=== PATIENT | female | born 1950 | race Caucasian/White ===

== ENCOUNTER 2021-10-18 18:46 | Outpatient (CLI) | payer MEDICARE, BC, SELFPAY ==
[2021-10-18 21:41] LABS: Lipase* 86 U/L (23-300)
[2021-10-18 21:42] LABS: Alanine Aminotransferase* 24 U/L (4-35); Alkaline Phosphatase* 78 U/L (40-150); Aspartate Amino Transferase* 25 U/L (12-35); Bilirubin Direct* 0.1 mg/dL (0.0-0.5); Bilirubin Total* 0.3 mg/dL (0.1-1.5); Total Protein* 7.4 g/dL (6.0-8.3)
== END 2021-10-18 18:47 | disposition home or self-care (01) ==
PROVIDERS: PCP Family Medicine; Visit Provider Registered Nurse
DX: R10.9 Unspecified abdominal pain (principal); K25.9 Gastric ulcer, unspecified as acute or chronic, without hemorrhage or perforation
CPT/HCPCS: 80053; 80076; 83690

== ENCOUNTER 2021-11-13 09:49 | Outpatient (CLI) | payer MEDICARE, BC, SELFPAY | END 2021-11-13 09:50 | disposition home or self-care (01) | PROVIDERS: PCP Family Medicine; Visit Provider Surgery | DX: R19.8 Other specified symptoms and signs involving the digestive system and abdomen (principal) | CPT/HCPCS: 43239; 88305; J2250; J3010 ==

== ENCOUNTER 2021-11-21 14:33 | Outpatient (CLI) | payer MEDICARE, BC, SELFPAY ==
[2021-11-21 13:32] LABS: Albumin* 4.8 g/dL (3.3-5.0); Chloride* 103 mmol/L (96-114)
[2021-11-21 13:33] LABS: Potassium* 4.4 mmol/L (3.6-5.1); Sodium* 140 mmol/L (135-149)
[2021-11-21 13:35] LABS: Alanine Aminotransferase* 24 U/L (4-35); Alkaline Phosphatase* 73 U/L (40-150); Bilirubin Total* 0.5 mg/dL (0.1-1.5); Blood Urea Nitrogen* 17 mg/dL (7-30); Carbon Dioxide* 28 mmol/L (20-32); Cholesterol* 185 mg/dL (90-199); Creatinine* 0.8 mg/dL (0.5-1.5); Estimated Glomerular Filt Rate 78 ml/min; Glucose* 117 mg/dL (60-115); Total Protein* 7.2 g/dL (6.0-8.3)
[2021-11-21 13:36] LABS: Calcium* 9.9 mg/dL (8.4-10.6); HDL Cholesterol* 66 mg/dL (>=50); LDL Cholesterol Calculated 92 mg/dL (<100); Triglycerides* 137 mg/dL (40-149)
[2021-11-21 13:40] LABS: Aspartate Amino Transferase* 24 U/L (12-35)
== END 2021-11-21 14:34 | disposition home or self-care (01) ==
PROVIDERS: PCP Family Medicine; Visit Provider Family Medicine
DX: E78.5 Hyperlipidemia, unspecified (principal)
CPT/HCPCS: 80053; 80061

== ENCOUNTER 2021-12-12 10:31 | Outpatient (CLI) | payer MEDICARE, BC, SELFPAY ==
--- NOTE | 2021-12-12 11:00 | CRLHL7_ITS ---
For Patients: As a result of the Cures Act, medical imaging exams and procedure reports are released immediately into your electronic medical record. You may view this report before your referring provider. If you have questions, please contact your health care provider. Examination: US abdominal aorta Indication: Abdominal aortic aneurysm screening. Technique: Pink scale and color Doppler images of the aorta and common iliac arteries are obtained. Comparison: None Findings: Proximal aorta: 1.6 x 1.6 cm Mid aorta: 1.9 x 1.5 cm Distal aorta: 1.4 x 1.3 cm Right common iliac artery: 0.9 x 1.1 cm Left common iliac artery: 0.7 x 1.0 cm Impression: No abdominal aortic aneurysm. Dictated by Tommy Chaney MD @ 12/12/2021 11:09:18 AM (Electronically Signed)
== END 2021-12-12 10:32 | disposition home or self-care (01) ==
LOC: US 10:32
PROVIDERS: PCP Family Medicine; Visit Provider Family Medicine
DX: Z13.6 Encounter for screening for cardiovascular disorders (principal); Z87.891 Personal history of nicotine dependence
CPT/HCPCS: 76706

== ENCOUNTER 2022-12-26 13:30 | Outpatient (CLI) | payer MEDICARE, BC, SELFPAY | END 2022-12-26 13:31 | disposition home or self-care (01) | PROVIDERS: PCP Family Medicine; Visit Provider Family Medicine | DX: Z00.00 Encounter for general adult medical examination without abnormal findings (principal); E78.5 Hyperlipidemia, unspecified; D72.819 Decreased white blood cell count, unspecified; R73.03 Prediabetes; Z13.6 Encounter for screening for cardiovascular disorders | CPT/HCPCS: 80053; 80061 ==

== ENCOUNTER 2023-10-06 08:58 | Outpatient (CLI) | payer MEDICARE, SELFPAY ==
--- NOTE | 2023-10-06 09:15 | CRLHL7_ITS ---
For Patients: As a result of the Cures Act, medical imaging exams and procedure reports are released immediately into your electronic medical record. You may view this report before your referring provider. If you have questions, please contact your health care provider. BILATERAL SCREENING MAMMOGRAM WITH COMPUTER-AIDED DETECTION AND TOMOSYNTHESIS TECHNIQUE: CC and MLO views were obtained. These mammographic images have been obtained using full-field digital technique. These mammographic images were interpreted with the benefit of computer-aided detection. Breast Tomosynthesis was used in this interpretation. COMPARISON FILM: 07/18/22, 08/24/19, 03/26/18. FINDINGS: There are scattered areas of fibroglandular density IMPRESSION: There is no radiographic evidence for malignancy. ASSESSMENT: BI-RADS Category 1: Negative RECOMMENDATION: Routine screening mammogram in 1 year. A lay language report of this examination will be provided to the patient. Tommy Chaney M.D. Diagnostic Radiologist [email or web address] DANE/marie / be/Dictated by: Tommy Chaney MD @ 10/06/2023 9:43:00 AM (Electronically Signed)
== END 2023-10-06 08:59 | disposition home or self-care (01) ==
LOC: MAMMO 09:01
PROVIDERS: PCP Family Medicine; Visit Provider Family Medicine
DX: Z12.31 Encounter for screening mammogram for malignant neoplasm of breast (principal)
CPT/HCPCS: 77063; 77067

== ENCOUNTER 2024-01-15 11:14 | Outpatient (CLI) | payer MEDICARE, SELFPAY | END 2024-01-15 11:15 | disposition home or self-care (01) | PROVIDERS: PCP Family Medicine; Visit Provider Family Medicine | DX: R73.03 Prediabetes (principal); E78.5 Hyperlipidemia, unspecified | CPT/HCPCS: 80053; 80061 ==

== ENCOUNTER 2024-11-08 13:32 | Outpatient (CLI) | payer MEDICARE, SELFPAY ==
--- NOTE | 2024-11-08 14:00 | CRLHL7_ITS ---
For Patients: As a result of the Century Cures Act, medical imaging exams and procedure reports are released immediately into your electronic medical record. You may view this report before your referring provider. If you have questions, please contact your health care provider. INDICATION: BILATERAL SCREENING MAMMOGRAM, ASYMPTOMATIC 74 Y/O FEMALE COMPARISON: 10/06/2023, 07/18/2022, 11/13/2020 TECHNIQUE: Digital mammogram in CC and MLO projections including computer-aided detection (CAD) and tomosynthesis. BREAST COMPOSITION: The breasts are almost entirely fatty. FINDINGS: No suspicious findings. ASSESSMENT: BI-RADS 2 Benign RECOMMENDATION: Annual screening mammogram. A lay language report of this examination will be provided to the patient. Dictated by: Tommy Chaney MD @ 11/09/2024 09:42:49 (Electronically Signed)
== END 2024-11-08 13:33 | disposition home or self-care (01) ==
LOC: MAMMO 13:34
PROVIDERS: PCP Family Medicine; Visit Provider Family Medicine
DX: Z12.31 Encounter for screening mammogram for malignant neoplasm of breast (principal)
CPT/HCPCS: 77063; 77067

== ENCOUNTER 2025-01-10 09:21 | Outpatient (CLI) | payer MEDICARE, SELFPAY ==
--- NOTE | 2025-01-10 11:25 | W.ANESCHARGE ---
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
--- NOTE | 2025-01-10 11:25 | P.ANES_ITS ---
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
--- NOTE | 2025-01-10 11:55 | P.ANES_ITS ---
Anesthesia Charges Start Date/Time Anesthesia Start Date: 01/10/25 Anesthesia Start Time: 10:46 Stop Date/Time Anesthesia Stop Date: 01/10/25 Anesthesia Stop Time: 11:22 Summary Extremes of Age - Over 70 or under 1: MDA Coding CPT Codes CPT Codes: ANES LWR INTST NDSC NOS - 36922 ([id number]) P2 - PATIENT W/MILD SYST DISEASE, QK - DRUM TENDER 2-4 CNCRNT ANES PROC, QX - MATERIAL REPROCESSING ASSOCIATE SVC W/ MD MED DIRECTION Additional Codes: Summary - Extremes of Age - Over 70 or under 1: FRACISCO ([id number])
--- NOTE | 2025-01-10 11:55 | W.ANESCHARGE ---
Anesthesia Charges Start Date/Time Anesthesia Start Date: 01/10/25 Anesthesia Start Time: 10:46 Stop Date/Time Anesthesia Stop Date: 01/10/25 Anesthesia Stop Time: 11:22 Summary Extremes of Age - Over 70 or under 1: MDA Coding CPT Codes CPT Codes: ANES LWR INTST NDSC NOS - [id number] ([id number]) P2 - PATIENT W/MILD SYST DISEASE, QK - BURSAR 2-4 CNCRNT ANES PROC, QX - ANIMAL HEALTH TECHNICIAN SVC W/ MD MED DIRECTION Additional Codes: Summary - Extremes of Age - Over 70 or under 1: FRACISCO ([id number])
== END 2025-01-10 09:22 | disposition home or self-care (01) ==
LOC: OP CLINIC 09:22
PROVIDERS: PCP Family Medicine; Visit Provider Surgery
DX: Z12.11 Encounter for screening for malignant neoplasm of colon (principal); Z86.0100 Personal history of colon polyps, unspecified
CPT/HCPCS: 00811; 00812; 45385; 99100; J2704

== ENCOUNTER 2025-01-18 09:54 | Outpatient (CLI) | payer MEDICARE, SELFPAY | END 2025-01-18 09:55 | disposition home or self-care (01) | LOC: NFLDREF 01-22 17:01 | PROVIDERS: PCP Family Medicine; Referring Provider Family Medicine; Visit Provider Family Medicine | DX: R73.03 Prediabetes (principal); E78.5 Hyperlipidemia, unspecified | CPT/HCPCS: 80053; 80061 ==